=== PATIENT | female | born 1950 | race Two or more races ===

== ENCOUNTER 2018-06-06 09:55 | Outpatient (CLI) | payer OTHER | END 2018-06-06 10:00 | disposition home or self-care (01) | LOC: SONOGRAMA 09:55 | DX: E04.1 Nontoxic single thyroid nodule (principal) ==

== ENCOUNTER 2022-12-03 06:00 | Day surgery (SDC) | payer OTHER ==
[~2022-12-03] VITALS: Ht 76.2 cm; Wt 70.8 kg
[~2022-12-03 06:00] MED LIST: AVALIDE 300-121 EACH PO; CRESTOR5 MG PO
== END 2022-12-03 18:10 | disposition home or self-care (01) ==
LOC: CIR.AMB 06:00
PROVIDERS: ATTEND Surgery
DX: D05.12 Intraductal carcinoma in situ of left breast (principal); R59.0 Localized enlarged lymph nodes; Z90.12 Acquired absence of left breast and nipple; I10 Essential (primary) hypertension; Z20.822 Contact with and (suspected) exposure to COVID-19; Z88.6 Allergy status to analgesic agent
CPT/HCPCS: 19303; 38525; 19357; A9541

== ENCOUNTER 2023-03-04 06:00 | Day surgery (SDC) | payer OTHER ==
[~2023-03-04] VITALS: Ht 167.6 cm; Wt 72.1 kg
[~2023-03-04 06:00] MED LIST changes: +ANASTROZOLE1 MG PO
== END 2023-03-04 12:55 | disposition home or self-care (01) ==
LOC: CIR.AMB 06:00
PROVIDERS: ATTEND Plastic Surgery
DX: N65.1 Disproportion of reconstructed breast (principal); Z90.12 Acquired absence of left breast and nipple; L90.5 Scar conditions and fibrosis of skin; L82.1 Other seborrheic keratosis; Z88.6 Allergy status to analgesic agent; Z20.822 Contact with and (suspected) exposure to COVID-19